=== PATIENT | male | born 1935 | race Caucasian/White ===

== ENCOUNTER → 2017-10-29 | Outpatient (CLI) | payer OTHER, BC | LOC: BHFA 09:15 | PROVIDERS: ATTEND Internal Medicine Cardiovascular Disease | DX: I05.9 Rheumatic mitral valve disease, unspecified (principal); I25.10 Atherosclerotic heart disease of native coronary artery without angina pectoris; I48.91 Unspecified atrial fibrillation ==

== ENCOUNTER 2017-12-13 03:02 | Inpatient (IN) | payer OTHER, BC ==
[2017-12-13 03:34] LABS: PLATELET COUNT 93 10^3/uL (150-400)
[2017-12-13] MEDS ORDERED: IPRATROPIUM/ALBUTEROL 3 ML DEYVIAL IH ONE (04:09)
--- NOTE | 2017-12-13 04:55 | EDPHY ---
H & P Stated Complaint: SOB, cough x6 days Time Seen by Provider: 12/13/17 03:22 HPI/ROS: Chief Complaint: Shortness of breath, cough HPI: 82-year-old male with a history of congestive heart failure, heart valve disease in atrial fibrillation is presenting with worsening shortness of breath for the last 6 days. Patient states he has had nonproductive cough. Patient states he is normally able to walk 5 miles a day. He is now gets winded when walking his dog. He has been having to sleep in a chair. No fevers or chills. No chest pain. He checked his pulse ox at home a notice it was 84%. He has been taking his Lasix as prescribed. No nausea or vomiting. ROS: 10 point Review of Systems is negative except as noted in the HPI. Family History: non-contributory Physical Exam: Gen: Awake, Alert, No Distress HEENT: Nose: no rhinorrhea Eyes: PERRLA, EOMI Mouth: Moist mucosa Neck: Supple, no JVD Chest: nontender, diffuse expiratory wheeze with mild bibasilar crackles Heart: S1, S2 normal, no murmur Abd: Soft, non-tender, no guarding Back: no CVA tenderness, no midline tenderness Ext: 1+ edema, non-tender Skin: no rash Neuro: CN II-XII intact, Sensation grossly intact, Strength 5/5 in bilateral upper and lower extremities - Personal History Current Tetanus/Diphtheria Vaccine: Yes Current Tetanus Diphtheria and Acellular Pertussis (TDAP): Yes Tetanus Vaccine Date: 2004 - Medical/Surgical History Hx Asthma: No Hx Chronic Respiratory Disease: No Hx Diabetes: No Hx Cardiac Disease: Yes Hx Renal Disease: No Hx Cirrhosis: No Hx Alcoholism: No Hx HIV/AIDS: No Hx Splenectomy or Spleen Trauma: No Other PMH: atrial fibrillation (rate controlled/blood thinned), two strokes ( right side affected), Coronary Artery Disease, gout, bilateral hearing loss, thyroid nodules, - Social History Smoking Status: Never smoked Constitutional: Initial Vital Signs Temperature (C) 37.1 C 12/13/17 03:05 Heart Rate 69 12/13/17 03:05 Respiratory Rate 18 12/13/17 03:05 Blood Pressure 147/71 H 12/13/17 03:05 O2 Sat (%) 84 L 12/13/17 03:05 O2 Delivery Mode Room Air O2 (L/minute) 2 Allergies/Adverse Reactions: No Known Allergies Allergy (Unverified 01/11/16 05:48) Home Medications: Medication Instructions Recorded Allopurinol [Allopurinol 300 MG 150 mg PO DAILY 03/03/14 (RX)] Aspirin [Aspirin 81mg (*)] 81 mg PO DAILY@03/03/14 Furosemide [Lasix 40 MG (*)] 40 mg PO DAILY@03/03/14 Furosemide [Lasix 40 MG (*)] 80 mg PO DAILY 03/03/14 [place]-3 Fatty Acids [Fish Oil 1000 1,000 mg PO DAILY 03/03/14 mg (*)] Potassium Chloride 20 meq PO DAILY@03/03/14 Potassium Chloride 40 meq PO BID@,03/03/14 Atenolol [Tenormin 25 mg (*)] 25 mg PO DAILY@01/11/16 Doxazosin Mesylate [Cardura 4 MG 4 mg PO DAILY@01/11/16 (*)] Warfarin Sodium [Coumadin 2.5MG 2.5 mg PO SUTUWEFRSA@01/11/16 (*)] Warfarin Sodium [Coumadin 5MG (*)] 5 mg PO MOTH@01/11/16 Medical Decision Making - Diagnostics EKG Interpretation: ECG time 5:00 a.m.. Is atrial fibrillation with a ventricular rate of 70, nonspecific intraventricular conduction delay, no acute ischemic changes. Imaging Results: Chest x-ray shows no focal infiltrates, moderate CHF. Imaging: I viewed and interpreted images myself ED Course/Re-evaluation: 10-year-old male with a history of CHF with exacerbation of shortness of breath. Oxygen saturations 84% on room air. Diffuse expiratory wheezing. BNP is 3000 which is more his baseline. No significant edema. Giving him a DuoNeb here. It is unclear whether this is COPD exacerbation or more of a reactive airway disease process. Given his oxygen saturations in oxygen requirement will be admitted to the hospitalist for further care. - Data Points Laboratory Results: Laboratory Results 12/13/17 03:25 12/13/17 03:25 12/13/17 12/13/17 12/13/17 03:49 03:25 03:25 WBC 4.39 10^3/uL 10^3/uL (3.80-9.50) RBC 4.81 10^6/uL 10^6/uL (4.40-6.38) Hgb 15.2 g/dL g/dL (13.7-17.5) Hct 44.3 % % (40.0-51.0) MCV 92.1 fL fL (81.5-99.8) MCH 31.6 pg pg (27.9-34.1) MCHC 34.3 g/dL g/dL (32.4-36.7) RDW 14.0 % % (11.5-15.2) Plt Count 93 10^3/uL L 10^3/uL (150-400) MPV 11.3 fL fL (8.7-11.7) Neut % (Auto) 54.9 % % (39.3-74.2) Lymph % (Auto) 28.0 % % (15.0-45.0) [place] % (Auto) 15.3 % H % (4.5-13.0) Eos % (Auto) 1.1 % % (0.6-7.6) Baso % (Auto) 0.5 % % (0.3-1.7) Nucleat RBC Rel Count 0.0 % % (0.0-0.2) Absolute Neuts (auto) 2.41 10^3/uL 10^3/uL (1.70-6.50) Absolute Lymphs (auto) 1.23 10^3/uL 10^3/uL (1.00-3.00) Absolute Monos (auto) 0.67 10^3/uL 10^3/uL (0.30-0.80) Absolute Eos (auto) 0.05 10^3/uL 10^3/uL (0.03-0.40) Absolute Basos (auto) 0.02 10^3/uL 10^3/uL (0.02-0.10) Absolute Nucleated RBC 0.00 10^3/uL 10^3/uL (0-0.01) Immature Gran % 0.2 % % (0.0-1.1) Immature Gran # 0.01 10^3/uL 10^3/uL (0.00-0.10) Turbidity Not Reported Sodium 144 mEq/L mEq/L (135-145) Potassium 3.7 mEq/L mEq/L (3.5-5.2) Chloride 101 mEq/L mEq/L (97-110) Carbon Dioxide 29 mEq/l mEq/l (22-31) Anion Gap 14 mEq/L mEq/L (8-16) BUN 24 mg/dL H mg/dL (7-23) Creatinine 1.0 mg/dL mg/dL (0.7-1.3) Estimated GFR > 60 Glucose 108 mg/dL H mg/dL (70-100) Calcium 9.9 mg/dL mg/dL (8.5-10.4) Troponin I 0.015 ng/mL ng/mL (0.000-0.034) NT-Pro-B Natriuret Pep 2840 pg/mL H pg/mL (0-450) Specimen Hemolysis Not Reported Nasal Influenza A PCR NEGATIVE FOR FLU A (NEGATIVE) Nasal Influenza B PCR NEGATIVE FOR FLU B (NEGATIVE) Medications Given: Discontinued Medications Albuterol/Ipratropium (Duoneb) 3 ml EDNOW ONE Stop: 12/13/17 04:10 Last Admin: 12/13/17 04:19 Dose: 3 ml Departure - Departure Disposition: [facility] Inpatient Acute Clinical Impression: Shortness of breath, Hypoxemia Condition: Fair Referrals: Reji Jacome MD [Primary Care Provider] - As per Instructions
[2017-12-13] MEDS ORDERED: ACETAMINOPHEN 325 MG TAB PO PRN (05:00)
[2017-12-13] MEDS ORDERED: ALBUTEROL 3 ML DEYVIAL IH PRN (05:00)
[2017-12-13] MEDS ORDERED: ONDANSETRON DISINTEGRATING 4 MG TAB PO PRN (05:00)
[2017-12-13] MEDS ORDERED: ONDANSETRON 4 MG/2 ML VIAL IVP PRN (05:00)
--- NOTE | 2017-12-13 05:03 | CPEKG ---
Heart Rate: 70 RR Interval: 857 QRSD Interval: 124 QT Interval: 440 QTC Interval: 475 QRS Cameron: -21 T Wave Cameron: 46 EKG Severity - ABNORMAL ECG - EKG Impression: ATRIAL FIBRILLATION, V-RATE 55-78 EKG Impression: NONSPECIFIC INTRAVENTRICULAR CONDUCTION DELAY Electronically Signed By: Carlitos Hightower 13-Dec-2017 05:37:11
[2017-12-13 05:11] LABS: INR 2.11 (0.83-1.16); PROTIME(PATIENT) 23.7 SEC (12.0-15.0)
--- NOTE | 2017-12-13 05:25 | PDGENHP ---
History and Physical - Chief Complaint SOB - History of Present Illness 82 yo M w/ AF, HTN, and HFpEF presents with shortness of breath. Patient developed congestion and cough starting 4-5 days ago. Since, he has developed progressive dyspnea on exertion and wheezing. He weighs himself daily and his weight has remained stable at 220 lb. He denies any increase in his LE edema. His diuretic dosing has been stable for some time as have been the remainder of his medications. He noticed significant improvement from a nebulizer treatment in the ED. He is a non-smoker and has no prior hx of COPD or asthma. History Information - Allergies/Home Medication List Allergies/Adverse Reactions: No Known Allergies Allergy (Unverified 01/11/16 05:48) Home Medications: Allopurinol [Allopurinol 300 MG (RX)] 150 mg PO DAILY 03/03/14 [Last Taken 01/10] Aspirin [Aspirin 81mg (*)] 81 mg PO DAILY@03/03/14 [Last Taken 01/10/16] Furosemide [Lasix 40 MG (*)] 40 mg PO DAILY@03/03/14 [Last Taken 01/10/16] Furosemide [Lasix 40 MG (*)] 80 mg PO DAILY 03/03/14 [Last Taken 01/11/16] [place]-3 Fatty Acids [Fish Oil 1000 mg (*)] 1,000 mg PO DAILY 03/03/14 [Last Taken 01/10/16] Potassium Chloride 20 meq PO DAILY@03/03/14 [Last Taken 01/10/16] Potassium Chloride 40 meq PO BID@03/03/14 [Last Taken 01/11/16] Atenolol [Tenormin 25 mg (*)] 25 mg PO DAILY@01/11/16 [Last Taken 01/10/16] Doxazosin Mesylate [Cardura 4 MG (*)] 4 mg PO DAILY@01/11/16 [Last Taken ] Warfarin Sodium [Coumadin 2.5MG (*)] 2.5 mg PO SUTUWEFRSA@01/11/16 [Last Taken 01/10/16] Warfarin Sodium [Coumadin 5MG (*)] 5 mg PO MOTH@01/11/16 [Last Taken 01/08/16 ] I have personally reviewed and updated: family history, medical history - Past Medical History atrial fibrillation, CHF, hypertension - Family History Positive for: cancer - Social History Smoking Status: Never smoked Review of Systems Review of Systems: ROS: 10pt was reviewed & negative except for what was stated in HPI & below Physical Exam Physical Exam: Temp Pulse Resp BP Pulse Ox 37.1 C 63 22 H 143/68 H 98 12/13/17 03:05 12/13/17 05:16 12/13/17 05:16 12/13/17 05:16 12/13/17 05:16 O2 (L/minute) 2 Constitutional: no apparent distress, not in pain Eyes: PERRL Ears, Nose, Mouth, Throat: moist mucous membranes, no oral mucosal ulcers Cardiovascular: systolic murmur, irregularly irregular, edema (1+ b/l TRINO) Respiratory: no respiratory distress, expiratory wheeze, rhonchi Gastrointestinal: normoactive bowel sounds, soft, non-tender abdomen Genitourinary: no bladder tenderness Skin: warm Neurologic: AAOx3 Lab Data & Imaging Review 12/13/17 03:25 12/13/17 03:25 WBC 4.39 10^3/uL (3.80-9.50) 12/13/17 03:25 RBC 4.81 10^6/uL (4.40-6.38) 12/13/17 03:25 Hgb 15.2 g/dL (13.7-17.5) 12/13/17 03:25 Hct 44.3 % (40.0-51.0) 12/13/17 03:25 MCV 92.1 fL (81.5-99.8) 12/13/17 03:25 MCH 31.6 pg (27.9-34.1) 12/13/17 03:25 MCHC 34.3 g/dL (32.4-36.7) 12/13/17 03:25 RDW 14.0 % (11.5-15.2) 12/13/17 03:25 Plt Count 93 10^3/uL (150-400) L 12/13/17 03:25 MPV 11.3 fL (8.7-11.7) 12/13/17 03:25 Neut % (Auto) 54.9 % (39.3-74.2) 12/13/17 03:25 Lymph % (Auto) 28.0 % (15.0-45.0) 12/13/17 03:25 [place] % (Auto) 15.3 % (4.5-13.0) H 12/13/17 03:25 Eos % (Auto) 1.1 % (0.6-7.6) 12/13/17 03:25 Baso % (Auto) 0.5 % (0.3-1.7) 12/13/17 03:25 Nucleat RBC Rel Count 0.0 % (0.0-0.2) 12/13/17 03:25 Absolute Neuts (auto) 2.41 10^3/uL (1.70-6.50) 12/13/17 03:25 Absolute Lymphs (auto) 1.23 10^3/uL (1.00-3.00) 12/13/17 03:25 Absolute Monos (auto) 0.67 10^3/uL (0.30-0.80) 12/13/17 03:25 Absolute Eos (auto) 0.05 10^3/uL (0.03-0.40) 12/13/17 03:25 Absolute Basos (auto) 0.02 10^3/uL (0.02-0.10) 12/13/17 03:25 Absolute Nucleated RBC 0.00 10^3/uL (0-0.01) 12/13/17 03:25 Immature Gran % 0.2 % (0.0-1.1) 12/13/17 03:25 Immature Gran # 0.01 10^3/uL (0.00-0.10) 12/13/17 03:25 PT 23.7 SEC (12.0-15.0) H 12/13/17 03:25 INR 2.11 (0.83-1.16) H 12/13/17 03:25 APTT 39.2 SEC (23.0-38.0) H 12/13/17 03:25 Turbidity Not Reported 12/13/17 03:25 Sodium 144 mEq/L (135-145) 12/13/17 03:25 Potassium 3.7 mEq/L (3.5-5.2) 12/13/17 03:25 Chloride 101 mEq/L (97-110) 12/13/17 03:25 Carbon Dioxide 29 mEq/l (22-31) 12/13/17 03:25 Anion Gap 14 mEq/L (8-16) 12/13/17 03:25 BUN 24 mg/dL (7-23) H 12/13/17 03:25 Creatinine 1.0 mg/dL (0.7-1.3) 12/13/17 03:25 Estimated GFR > 60 12/13/17 03:25 Glucose 108 mg/dL (70-100) H 12/13/17 03:25 Calcium 9.9 mg/dL (8.5-10.4) 12/13/17 03:25 Troponin I 0.015 ng/mL (0.000-0.034) 12/13/17 03:25 NT-Pro-B Natriuret Pep 2840 pg/mL (0-450) H 12/13/17 03:25 Specimen Hemolysis Not Reported 12/13/17 03:25 Nasal Influenza A PCR NEGATIVE FOR FLU A (NEGATIVE) 12/13/17 03:49 Nasal Influenza B PCR NEGATIVE FOR FLU B (NEGATIVE) 12/13/17 03:49 Visualized and Interpreted Chest x-ray results: Yes Chest X-Ray results: no infiltrate Visualized and Interpreted EKG results: Yes EKG Interpretation: Positive for: other (AF) Assessment & Plan Assessment: 82 yo M w/ AF, HTN, and HFpEF presents w/ SOB most likely from viral infection and RAD. Plan: 1. Dyspnea - I suspect this is related to viral infection and RAD rather than CHF exacerbation. He has had 4-5 days of URI symptoms, presented with notable wheezing on exam, and noted significant improvement from nebulizer treatment. Meanwhile his weight has remained stable at 220 lbs and his CXR and exam are not consistent with significant volume overload. - Will schedule Duonebs q6h + albuterol PRN - Consider prednisone if not improving 2. AHRF - 2/2 above, mild only requiring 1-2 L. Treat as above and wean as able. 3. HFpEF - Most recent TTE on 10/30 demonstrated normal EF. He is maintained on furosemide 40/80 daily and his weight has been stable at 220 lbs. - Continue home diuretic dosing - Cardiac diet, daily weights, monitor I/Os - Consider increase in diuretic dosing if not improving with treatment of RAD 4. AF - On atenolol and warfarin; INR therapeutic on admission. 5. HTN - On atenolol. 6. Gout - On allopurinol, no e/o acute flare. Diet - Cardiac Ppx - warfarin Code - full Dispo - Admit under observation status
[2017-12-13] MEDS: IPRATROPIUM/ALBUTEROL 3 ML DEYVIAL IH SCH ×4 (07:21→23:13)
--- NOTE | 2017-12-13 10:55 | HOSPPROG ---
Hospitalist Progress Note Assessment/Plan: * RAD exacerbation due to viral bronchitis -add prednisone, continue nebs -check resp PCR * Acute respiratory failure - stable on O2 -still with spells of respiratory distress * Chronic diastolic CHF - suspect euvolemic -continue home lasix * Afib -atenolol, warfarin Subjective: Had spell of severe SOB this am Objective: Vital Signs Temp Pulse Resp BP Pulse Ox 36.8 C 80 15 151/82 H 94 12/13/17 06:12 12/13/17 07:29 12/13/17 07:29 12/13/17 07:29 12/13/17 07:29 PT 23.7 SEC (12.0-15.0) H 12/13/17 03:25 INR 2.11 (0.83-1.16) H 12/13/17 03:25 CXR viewed, my personal interpretation is - CHF vs. bronchitis tele reviewed - rate controlled afib - Physical Exam Constitutional: no apparent distress, appears nourished, not in pain Cardiovascular: regular rate and rhythym, no murmur, rub, or gallop Respiratory: expiratory wheeze, inspiratory crackles, respiratory distress, rhonchi Gastrointestinal: normoactive bowel sounds, soft, non-tender abdomen, no palpable masses Skin: no rashes or abrasions, no fluctuance, no induration Neurologic: AAOx3, sensation intact bilaterally Psychiatric: interacting appropriately, not anxious, not encephalopathic, thought process linear ICD10 Worksheet Patient Problems: Problems Problem Status Onset Hypoxemia Acute Shortness of breath Acute Osteoarthritis of knee Acute Right upper quadrant abdominal pain Acute
--- NOTE | 2017-12-13 11:20 | PDMN ---
Medical Necessity Medical necessity: C/M review: est. > 2 MN LOS for eval and TX of acute and persistent reactive airway disease exacerbation due to viral bronchitis, acute respiratory failure, episode of severe shortness of breath 12/13/2017 AM and ongoing episodes of respiratory distress, requiring ongoing nebulizer treatments, initiate oral prednisone, cardiac monitoring, pulse oximetry, supplemental O2, comorbid chronic diastolic CHF, atrial fibrillation per 2017 Hospitalist progress note.
[2017-12-13] MEDS: predniSONE 20 MG TAB PO SCH (11:42)
[2017-12-13] MEDS: ALLOPURINOL 300 MG TAB PO SCH (11:42)
[2017-12-13] MEDS: POTASSIUM CL 20 MEQ TAB PO SCH ×2 (11:43→18:12)
[2017-12-13] MEDS ORDERED: NON-FORMULARY NEW DRUG (Potassium Chloride [Potassium Chloride] 20 MEQ) PO SCH (12:00)
[2017-12-13] MEDS ORDERED: DEXMEDETOMIDINE/NS 4MCG/ML 50 ML BTL IV ONE (12:26)
[2017-12-13] MEDS: WARFARIN SODIUM 5 MG TAB PO SCH (15:01)
--- NOTE | 2017-12-13 15:56 | ASMTCMCOM ---
CM Note CM Note Notes: Pt has been admitted with dyspnea, respiratory failure. He has a hx of afib, CHF, HTN. He has had [facility] in the past and lives with his Xiao in [place]. She is his MDPOA. CM will follow for any d/c needs. Date Signed: 12/13/2017 03:55 PM Electronically Signed By:CARO Cortés
[2017-12-13] MEDS ORDERED: POTASSIUM CHLORIDE 40 MEQ PO SCH (17:00)
[2017-12-13] MEDS ORDERED: ATENOLOL 25 MG TAB PO SCH (17:00)
[2017-12-13] MEDS: FUROSEMIDE 40 MG TAB PO SCH (18:12)
[2017-12-13] MEDS: ASPIRIN 81 MG CHEWABLE TAB PO SCH (18:12)
[2017-12-13] MEDS: MELATONIN 3 MG TAB PO SCH (20:08)
[2017-12-13] MEDS: guaiFENesin 600 MG TAB.ER PO SCH (20:08)
[2017-12-14 04:31] LABS: PLATELET COUNT 78 10^3/uL (150-400)
[2017-12-14 04:42] LABS: INR 2.81 (0.83-1.16); PROTIME(PATIENT) 29.5 SEC (12.0-15.0)
[2017-12-14] MEDS: IPRATROPIUM/ALBUTEROL 3 ML DEYVIAL IH SCH ×4 (04:53→23:14)
[2017-12-14] MEDS: ALLOPURINOL 300 MG TAB PO SCH (08:05)
[2017-12-14] MEDS: predniSONE 20 MG TAB PO SCH (08:06)
[2017-12-14] MEDS: FUROSEMIDE 40 MG TAB PO SCH ×2 (08:06→16:22)
[2017-12-14] MEDS: POTASSIUM CL 20 MEQ TAB PO SCH ×3 (08:06→16:22)
[2017-12-14] MEDS: guaiFENesin 600 MG TAB.ER PO SCH ×2 (08:06→20:10)
[2017-12-14] MEDS ORDERED: ATENOLOL 25 MG TAB PO SCH (12:21)
--- NOTE | 2017-12-14 14:41 | HOSPPROG ---
Hospitalist Progress Note Assessment/Plan: * RAD exacerbation due to viral bronchitis - human metapneumovirus -prednisone, nebs * Acute respiratory failure - stable on O2 -improved * Chronic diastolic CHF - suspect euvolemic -continue home lasix * Afib -bradycardic on atenolol - will change to low dose metoprolol -warfarin - therapeutic INR Subjective: Much better today Objective: Vital Signs Temp Pulse Resp BP Pulse Ox 36.3 C 67 22 H 113/62 92 12/14/17 12:15 12/14/17 12:15 12/14/17 12:15 12/14/17 12:15 12/14/17 12:15 Laboratory Results 12/14/17 04:06 12/14/17 04:06 12/13/17 12/14/17 12/15/17 05:59 05:59 05:59 Intake Total 1600 Output Total 800 Balance 800 PT 29.5 SEC (12.0-15.0) H 12/14/17 04:06 INR 2.81 (0.83-1.16) H 12/14/17 04:06 - Physical Exam Constitutional: no apparent distress, appears nourished, not in pain Cardiovascular: regular rate and rhythym, no murmur, rub, or gallop Respiratory: no respiratory distress, expiratory wheeze, inspiratory crackles, rhonchi Gastrointestinal: normoactive bowel sounds, soft, non-tender abdomen, no palpable masses Skin: no rashes or abrasions, no fluctuance, no induration Neurologic: AAOx3, sensation intact bilaterally Psychiatric: interacting appropriately, not anxious, not encephalopathic, thought process linear ICD10 Worksheet Patient Problems: Problems Problem Status Onset Hypoxemia Acute Shortness of breath Acute Osteoarthritis of knee Acute Right upper quadrant abdominal pain Acute
[2017-12-14] MEDS: ASPIRIN 81 MG CHEWABLE TAB PO SCH (16:22)
[2017-12-14] MEDS: WARFARIN SODIUM 5 MG TAB PO SCH (16:22)
[2017-12-14] MEDS ORDERED: METOPROLOL SUCCINATE XR 25 MG TAB PO SCH (17:00)
[2017-12-15] MEDS: MELATONIN 3 MG TAB PO SCH (00:18)
[2017-12-15 05:04] LABS: INR 3.05 (0.83-1.16); PROTIME(PATIENT) 31.4 SEC (12.0-15.0)
[2017-12-15] MEDS: IPRATROPIUM/ALBUTEROL 3 ML DEYVIAL IH SCH (05:57)
[2017-12-15 06:03] VITALS: RESP 20
[2017-12-15 07:57] VITALS: BP 128/62; PULSE 64; TEMP 97.7; O2SAT 91
[2017-12-15] MEDS: guaiFENesin 600 MG TAB.ER PO SCH (08:59)
[2017-12-15] MEDS: predniSONE 20 MG TAB PO SCH (09:00)
[2017-12-15] MEDS: ALLOPURINOL 300 MG TAB PO SCH (09:00)
[2017-12-15] MEDS: FUROSEMIDE 40 MG TAB PO SCH (09:00)
[2017-12-15] MEDS: POTASSIUM CL 20 MEQ TAB PO SCH ×2 (09:02→11:57)
[2017-12-15] MEDS: IPRATROPIUM/ALBUTEROL 4GM MDI IH SCH ×2 (11:35→11:39)
--- NOTE | 2017-12-15 12:19 | GDS ---
[f rep st] DISCHARGE SUMMARY DISCHARGE DIAGNOSES: 1. Reactive airways exacerbation due to viral bronchitis. 2. Human metapneumovirus. 3. Acute respiratory failure. 4. Chronic diastolic congestive heart failure. 5. Atrial fibrillation. HISTORY: The patient is an 82-year-old male who presented with shortness of breath and was found to have a reactive airway disease exacerbation with extensive wheezing heard throughout. This was broug ht on by viral bronchitis with testing positive PCR for human metapneumovirus. He initially had acut e respiratory failure requiring oxygen, but he has now been weaned to room air. He is on prednisone and nebulizers with improvement. At this point, he feels comfortable continuing his recovery at home . The patient has a history of atrial fibrillation and on his home atenolol did get quite bradycardic, although not symptomatic. Heart rate went down to 40. He was changed to low-dose metoprolol XL inst ead, and it seems to be more even for him regarding heart rate control. He does wish to continue thi s medication upon hospital discharge. DISCHARGE MEDICATIONS: Please see computer record for full detailed list. New medications: 1. Prednisone 40 mg p.o. daily for 4 more days. 2. Metoprolol XL 25 mg p.o. daily to be taken instead of atenolol. 3. Combivent 1 puff 4 times a day. 4. Mucinex 1200 mg p.o. b.i.d. ADDITIONAL DISCHARGE INSTRUCTIONS: Follow up with Dr. Nathaniel Jacome, primary care. Greater than 30 minutes' time was spent arranging this discharge. Patient seen and examined by me on day of discharge. /[id number]/MODL
[2017-12-15] MEDS ORDERED: WARFARIN SODIUM 7.5 MG TAB PO SCH (16:00)
== END 2017-12-15 13:48 | disposition home or self-care (01) | DRG 202 ==
LOC: F2W 06:10 → OBSVTOIN 10:51
PROVIDERS: ADMIT Student in an Organized Health Care Education/Training Program; ATTEND Student in an Organized Health Care Education/Training Program
DX: J20.8 Acute bronchitis due to other specified organisms (principal); J96.00 Acute respiratory failure, unspecified whether with hypoxia or hypercapnia; J45.901 Unspecified asthma with (acute) exacerbation; I11.0 Hypertensive heart disease with heart failure; I50.32 Chronic diastolic (congestive) heart failure; B97.81 Human metapneumovirus as the cause of diseases classified elsewhere; I48.91 Unspecified atrial fibrillation; M10.9 Gout, unspecified
CPT/HCPCS: 84154-90; J7512

== ENCOUNTER 2018-09-24 06:03 | Day surgery (SDC) | payer OTHER, BC ==
--- NOTE | 2018-09-23 15:23 | GHP ---
DATE OF ADMISSION: 09/24/2018 HISTORY OF PRESENT ILLNESS: This is a gentleman who is 82 years old, who has had an elevated PSA up to 31, and he has had an MRI that shows PIRADS 3 in 2017. He has had a 4Kscore of 95 and an ExoDx of 56.7. He has severe anal stenosis, and we could not do an ultrasound and biopsy in the office becau se of that, and he has been on warfarin. So, at the present time, he is admitted as an outpatient fo r a transrectal ultrasound and biopsy of the prostate because of the elevated PSA and to undergo with a general anesthesia because of the severe anal stenosis. He has had E coli UTIs in the past. PAST MEDICAL HISTORY: He has had atrial fibrillation, gout, heart disease, hypertension, kidney ston es, and lower urinary tract symptoms. PAST SURGICAL HISTORY: Vasectomy, shoulder surgery, knee replacement, gallbladder surgery, eye surge ry. MEDICATIONS: Include allopurinol, atenolol, doxazosin, vitamin D3. ALLERGIES: None. FAMILY HISTORY: Positive for heart disease, kidney stones, hypertension. SOCIAL HISTORY: Moderate alcohol consumption. Former smoker. REVIEW OF SYSTEMS: CONSTITUTIONAL: Negative. CARDIAC: Noted for atrial fibrillation. RESPIRATORY : Smoking/lung history noted. GASTROINTESTINAL: Normal. LOWER EXTREMITIES: Normal. PHYSICAL EXAMINATION: VITAL SIGNS: Stable. In the office, his blood pressure was 129/82, heart rat e 80 and regular, respirations 16, O2 saturation on room air 95%. HEENT: His head, ears, eyes, nose , and throat are normal. CHEST: Clear. HEART: Auscultation normal. ABDOMEN: Soft. LABORATORY FINDINGS: His PSA history has been all the way from 16.12 in October of 2016, up to 31 on 06/08/2018. ASSESSMENT AND PLAN: At the present time, he is admitted as an outpatient for transrectal ultrasound and biopsy of the prostate. Indications and complications have been discussed. Written and verbal consents were obtained. /[id number]/MODL
[2018-09-24] MEDS ORDERED: LR 1,000 ML IV ONE (06:31)
[2018-09-24] MEDS ORDERED: LIDOCAINE 1% 2 ML INJ ID PRN (06:31)
--- NOTE | 2018-09-24 06:48 | PDANEPAE ---
ANE History of Present Illness prostate hypertrophy ANE Past Medical History - Cardiovascular History Hx Hypertension: Yes Hx Arrhythmias: Yes Hx Coronary Artery / Peripheral Vascular Disease: Yes Hx CHF / Valvular Disease: No Hx Palpitations: Yes Cardiovascular History Comment: A FIB. ABLATION X1,UNSUCCESSFUL- ON COUMADIN- WILL DC WHEN DR HILTON INSTRUCTS AND WILL HAVE LOVENOX BRIDGE. NO CP. EDEMA- ON FUROSEMIDE - Pulmonary History Hx COPD: No Hx Asthma/Reactive Airway Disease: No Hx Recent Upper Respiratory Infection: No Hx Oxygen in Use at Home: No Hx Sleep Apnea: No Pulmonary History Comment: MARGINAL JENNIFER STUDY- UNCONCLUSIVE. 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 MISSING BACK LOWER TOOTH. GOUT - Chronic Pain History Chronic Pain: Yes (MAVIS KNEES, L HIP) - Surgical History Prior Surgeries: TONSILS. URETEROSCOPY FOR STONE REM. ABLATION UNSUCCESSFUL FOR A FIB. MAVIS CATARACTS ANE Review of Systems Review of systems is: negative Review of Systems: - Exercise capacity METS (RN): 3 METS ANE Patient History - Allergies Allergies/Adverse Reactions: No Known Allergies Allergy (Unverified 01/11/16 05:48) - Home Medications Home medications: home medication list seen and reviewed Home Medications: Allopurinol [Allopurinol 300 MG (RX)] 150 mg PO DAILY 03/03/14 [Last Taken 12/12] Aspirin [Aspirin 81mg (*)] 81 mg PO DAILY@03/03/14 [Last Taken 12/12/17] Furosemide [Lasix 40 MG (*)] 40 mg PO DAILY@03/03/14 [Last Taken 12/12/17] Furosemide [Lasix 40 MG (*)] 80 mg PO DAILY 03/03/14 [Last Taken 12/12/17] [place]-3 Fatty Acids [Fish Oil 1000 mg (*)] 1,000 mg PO DAILY 03/03/14 [Last Taken 12/12/17] Potassium Chloride 20 meq PO DAILY@12 03/03/14 [Last Taken 12/12/17] Potassium Chloride 40 meq PO BID@,17 03/03/14 [Last Taken 12/12/17] Warfarin Sodium [Coumadin 5MG (*)] 5 mg PO SUTUTHSA@1600 12/13/17 [Last Taken ] Warfarin Sodium [Coumadin 7.5MG (*)] 7.5 mg PO MOWEFR@1600 12/13/17 [Last Taken 12/12/17] - NPO status NPO Status: no food or drink >8 hours NPO Since - Liquids (Date): 09/23/18 NPO Since - Liquids (Time): 22:00 NPO Since - Solids (Date): 09/23/18 NPO Since - Solids (Time): 12:00 - Anes Hx Anes Hx: no prior problems - Smoking Hx Smoking Status: Never smoked Marijuana use: No - Alcohol Use Alcohol Use: Rarely - Family Anes Hx Family Anes Hx: none Family Hx Anesthesia Complications: NONE ANE Labs/Vital Signs - Vital Signs Blood Pressure: 144/84 Heart Rate: 61 Respiratory Rate: 18 O2 Sat (%): 94 Height: 172.72 cm Weight: 92.986 kg ANE Physical Exam - Airway Neck exam: FROM Mallampati Score: Class 2 Mouth exam: normal dental/mouth exam - Pulmonary Pulmonary: no respiratory distress, clear to auscultation - Cardiovascular Cardiovascular: no murmur, rub, or gallop, irregularly irregular - ASA Status ASA Status: III ANE Anesthesia Plan Anesthesia Plan: GA w LMA
[2018-09-24] MEDS ORDERED: PROPOFOL 200 MG/20 ML VIAL ONE (06:50)
[2018-09-24] MEDS ORDERED: fentaNYL 100 MCG/2 ML INJ ONE (06:50)
[2018-09-24] MEDS ORDERED: LIDOCAINE 2% 5 ML SDV ONE (06:51)
[2018-09-24] MEDS ORDERED: AMPICILLIN SODIUM 2 GM in NS 100 ML IV ONE (06:52)
--- NOTE | 2018-09-24 06:54 | PDHPUP ---
History & Physical Update H&P update statement: This history and physical update is based on an assessment of the patient which was completed after admission or registration (within 24 hours), but prior to the surgery/procedure. H&P update: H&P reviewed & patient examined, no change in patient's condition since H&P completed
[2018-09-24] MEDS ORDERED: GENTAMICIN 100 MG/NACL 100 ML IV ONE (07:00)
[2018-09-24] MEDS ORDERED: fentaNYL 100 MCG/2 ML INJ IVP PRN (07:13)
[2018-09-24] MEDS ORDERED: PROMETHAZINE HCL 25 MG/ML INJ IVP PRN (07:13)
[2018-09-24] MEDS ORDERED: NALOXONE HCL 0.4 MG/ML INJ IVP PRN (07:13)
--- NOTE | 2018-09-24 07:14 | POSTANESTH ---
Post Anesthetic Evaluation Cardiovascular Status: Normal, Stable Respiratory Status: Normal, Stable Level of Consciousness/Mental Status: Can Participate in Eval Pain Control: Adequate, Prn Tx Ordered Nausea/Vomiting Control: Adequate, Prn Tx Ordered Complications Possibly Related to Anesthesia: None Noted
[2018-09-24] MEDS ORDERED: BUPIVACAINE/EPI 0.5% 30 ML SDV ONE (07:18)
[2018-09-24] MEDS ORDERED: LIDOCAINE 1% 300 MG/30 ML SDV ONE (07:18)
[2018-09-24] MEDS ORDERED: LIDOCAINE 2% JELLY 5 ML TUBE ONE (07:19)
[2018-09-24] MEDS ORDERED: METHYLENE BLUE 0.5% 50 MG/10 ML AMP ONE (07:29)
--- NOTE | 2018-09-24 08:12 | POSTOPPROG ---
Post Op Note Date of Operation: 09/24/18 (dictated) Surgeon: Vikas Perdomo Anesthesia: LMA Pre-op Diagnosis: elevated PSA Procedure: TRUS / bx Inf/Abcess present in the surg proc area at time of surgery?: No EBL: Minimal Specimen(s): sent
--- NOTE | 2018-09-24 08:30 | GOP ---
DATE OF OPERATION: 09/24/2018 SURGEON: Vikas Perdomo MD PREOPERATIVE DIAGNOSIS: Elevated PSA and rising. POSTOPERATIVE DIAGNOSIS: Elevated PSA and rising. PROCEDURE PERFORMED: Transrectal ultrasound and biopsy of the prostate. 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 Measurements of his prostate revealed the prostate with 41.1 mm, pr ostate length 47.1 mm. Prostate height was 25.9 mm. Prostate volume was 26.2 cc, and PSA density wa s 1.14. At that point, after inspection of the prostate measurements, I did biopsy the base, mid ape x and transition zone of both the right and left sides, labeled each specimen separately in the bottl es, and sent them. At the end of the procedure, he had no bleeding per rectum and no complications e ncountered. He did receive ampicillin and gentamicin preop and will keep him on Levaquin postoperati vely. He tolerated the procedure well and will be discharged home and see us in the office in 1 week for pathology report, and I will take the findings to his family to discuss the setting. /[id number]/MODL
[2018-09-24 09:14] VITALS: BP 129/69
== END 2018-09-24 09:34 | disposition home or self-care (01) ==
LOC: FSGY 06:03
PROVIDERS: ATTEND Specialist
PROC: 0VB08ZX Excision of Prostate, Via Natural or Artificial Opening Endoscopic, Diagnostic (ICD-10-PCS; principal; 2018-09-24 07:25)
DX: R97.20 Elevated prostate specific antigen [PSA] (principal); N40.1 Benign prostatic hyperplasia with lower urinary tract symptoms; K62.4 Stenosis of anus and rectum; I48.91 Unspecified atrial fibrillation; M10.9 Gout, unspecified; I25.10 Atherosclerotic heart disease of native coronary artery without angina pectoris; E04.0 Nontoxic diffuse goiter; Z79.01 Long term (current) use of anticoagulants; I10 Essential (primary) hypertension; Z86.73 Personal history of transient ischemic attack (TIA), and cerebral infarction without residual deficits; Z87.442 Personal history of urinary calculi; Z87.891 Personal history of nicotine dependence; Z82.49 Family history of ischemic heart disease and other diseases of the circulatory system
CPT/HCPCS: J0290; J1580; J2704; J3010; Q9968

== ENCOUNTER → 2018-12-03 | Outpatient (CLI) | payer OTHER, BC | LOC: BHLMT 14:00 | PROVIDERS: ATTEND Internal Medicine Interventional Cardiology | DX: I48.91 Unspecified atrial fibrillation (principal); I25.10 Atherosclerotic heart disease of native coronary artery without angina pectoris | CPT/HCPCS: 93306-PO ==